=== PATIENT | female | born 1960 ===

== ENCOUNTER 2021-03-16 06:19 | Day surgery (SDC) | payer OTHER ==
[~2021-03-16 06:19] MED LIST: LEVO-T25 MCG PO; RESTORIL30 M1 PO
[2021-03-16] MEDS ORDERED: PERCOCET 5-3251 EACH PO (09:25)
== END 2021-03-16 16:10 | disposition home or self-care (01) ==
LOC: CIR.AMB 06:19
PROVIDERS: ATTEND Surgery
DX: K64.4 Residual hemorrhoidal skin tags (principal); K64.8 Other hemorrhoids; Z20.822 Contact with and (suspected) exposure to COVID-19